=== PATIENT | female | born 1995 | race Caucasian/White ===

== ENCOUNTER 2021-06-01 14:02 | Emergency (ER) | payer SELFPAY ==
[~2021-06-01] VITALS: Ht 160 cm; Wt 99.8 kg
--- OUTSIDE RECORDS SUMMARY | 2021-06-01 14:09 | XMS REPORT | Clinical Summary ---
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 If you d o not see the information that you expected, contact Release of Information in [facility] [employer] Information Management department at [phone] for further assistan ce in locating additional records.[facility] Allergies No Known Active Allergies Medications End Date Status Medication Sig Dispensed Refills Start Date Active sertraline (ZOLOFT) 100 Take 100 mg 0 mg tablet by mouth daily. Active ferrous sulfate (FEOSOL, Take 1 Tab by 90 Tab 3 FEROSUL) 325 mg (65 mg mouth daily. 7 iron) tabletIndications: Take on an Anemia due to chronic empty stomach blood loss at least 1 hour before or 2 hours after food. Active Problems No known active problems Surgical History Surgery Date Site/Laterality Comments HX APPENDECTOMY HX CHOLECYSTECTOMY TONSIL AND ADENOIDECTOMY WISDOM TEETH EXTRACTION Medical History Medical History Date Comments Asthma Migraines Family History Medical History Relation Name Comments Diabetes Father Heart Disease Maternal Grandfather Heart Disease Maternal Grandmother Cancer-Breast Mother Cancer-Colon Neg Hx Cancer-Ovarian Neg Hx Cancer-Uterine Neg Hx Cervical Cancer Neg Hx Relation Name Status Comments Father Maternal Grandfather Maternal Grandmother Mother Social History Date Tobacco Use Types Packs/Day Years Used Never Smoker Smokeless Tobacco: Never Used Comments Alcohol Use Standard Drinks/Week No 0 (1 standard drink = 0.6 o z pure alcohol) Sex Assigned at Date Recorded Not on file Obstetrics History Term Pre Abrt (TAB) (SAB) (Ect) Mult Lvng Comments Grav Para 1 1 1 Date GA Total Labor Labor/2nd/3rd Weight Sex Delivery Anes PTL Veronica A1 A5 Name Clin Outcome SAB Last Filed Vital Signs Reading Time Taken Comments Vital Sign 118/74 04/24/2017 11:22 AM CDT Blood Pressure 74 04/24/2017 11:22 AM CDT Pulse - - Temperature - - Respiratory Rate - - Oxygen Saturation - - Inhaled Oxygen Concentration 96.2 kg (212 lb) 04/24/2017 11:22 AM CDT Weight 157.5 cm (5' 2") 04/24/2017 11:22 AM CDT Height 38.78 04/24/2017 11:22 AM CDT Body Mass Index Plan of Treatment Health Maintenance Due Date Last Done Comments CHLAMYDIA SCREENING 18-24 1997 YEARS HPV VACCINES (1 - 2-dose 2008 series) HIV SCREENING 2012 DTAP/TDAP VACCINES ( - 2015 Tdap) HEPATITIS C SCREENING 2015 PHYSICAL (COMPREHENSIVE) 2015 EXAM CERVICAL CANCER SCREENING 2018 INFLUENZA VACCINE 06/22/2021 Results Not on filefrom Last 3 Months Insurance Type Payer Benefit Subscriber ID Effective Phone Address Plan / Dates [facility] [id number]-P [facility] 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
--- OUTSIDE RECORDS SUMMARY | 2021-06-01 14:09 | XMS REPORT | Clinical Summary ---
Author Author [facility] Organization [facility] Address Unknown Phone Unavailable Care Team Providers Care Ingot Header Name Role Phone PCP Unavailable Allergies No Known Active Allergies Medications End Date Status Medication Sig Dispensed Refills Start Date Active sertraline (ZOLOFT) 50 MG Take 50 mg by 0 tablet mouth daily. Active predniSONE (DELTASONE) 10 Take 10 mg by 0 MG tablet mouth daily. Active Problems Problem Noted Date Well child visit 01/17/2014 Social History Date Tobacco Use Types Packs/Day Years Used Never Smoker Comments Alcohol Use Standard Drinks/Week No 0 (1 standard drink = 0.6 o z pure alcohol) Sex Assigned at Date Recorded Not on file Last Filed Vital Signs Reading Time Taken Comments Vital Sign 151/67 09/02/2015 1:31 AM DONKEY DOCTOR Blood Pressure 60 09/02/2015 1:31 AM DONKEY DOCTOR Pulse 36.5 C (97.7 F) 09/01/2015 11:41 PM DONKEY DOCTOR Temperature 16 09/01/2015 11:41 PM DONKEY DOCTOR Respiratory Rate 97% 09/02/2015 1:31 AM DONKEY DOCTOR Oxygen Saturation - - Inhaled Oxygen Concentration 86.2 kg (190 lb) 09/01/2015 11:41 PM DONKEY DOCTOR Weight - - Height - - Body Mass Index Plan of Treatment Health Maintenance Due Date Last Done Comments Td/Tdap# 1997 HPV Vaccine (1 - 2-dose 2008 series) COVID-19 Vaccine (1) 2009 Cervical Cancer Screening 2018 via Pap Smear Influenza Vaccine (#1) 2021 Pneumococcal Vaccine: Aged Out No longer eligib le based on patient's age to Pediatrics (0 to 5 Years) complete this topic and At-Risk Patients (6 to 64 Years) Results Not on filefrom Last 3 Months Insurance Type Payer Benefit Subscriber ID Effective Phone Address Plan / Dates Group MEDICAID MANAGED CARE [place] [id number] 0- ([place]) [facility] Present [facility] Personal/F Other 04/20/1940 [address] [place] (Home) [place] [id number] Advance Directives For more information, please contact: [phone] Patient Comedian Explanation Type Date Recorded Advance Directives and Living Will Power of Laborer [employer]
[2021-06-01] MEDS ORDERED: RT-ALBUTEROL/IPRATROPIUM 3 ML (DUONEB) VIAL ONE (15:03)
--- NOTE | 2021-06-01 15:26 | ED Chest Pain ---
General Chief Complaint: Chest Pain Stated Complaint: COUGH,CP,CONGESTION,SOB Source: patient Exam Limitations: no limitations History of Present Illness Date Seen by Provider: Jun 01, 2021 Time Seen by Provider: 15:26 Initial Comments To ER with cough chest pain shortness of breath sneezing for a few days. She thought it was her allergies. History of asthma. She used the last of her rescue inhaler at home. No fevers. Timing/Duration: 2-3 days Severity/Quality: moderate Radiation: no radiation Activities at Onset: none ASA po TITLE ATTORNEY: No NTG SL TITLE ATTORNEY: No Associated Symptoms: shortness of breath Allergies and Home Medications Allergies Coded Allergies: No Known Drug Allergies (Unverified , 06/01/21) Patient Home Medication List Home Medication List Reviewed: Yes Review of Systems Review of Systems Constitutional: see HPI; No chills Respiratory: See HPI, Cough Cardiovascular: No Symptoms Reported Gastrointestinal: No Symptoms Reported Genitourinary: No Symptoms Reported Musculoskeletal: no symptoms reported Skin: no symptoms reported Psychiatric/Neurological: No Symptoms Reported Endocrine: No Symptoms Reported Past Zlhsuqq-Ztkdxm-Bhujrf Hx Patient Social History Tobacco Use?: No Smoking Status: Never a Smoker Use of E-Cig and/or Vaping dev: No Substance use?: No Alcohol Use?: No Pt feels they are or have been: No Immunizations Up To Date First/Initial COVID19 Vaccinat: OCT 2020 Second COVID19 Vaccination [place]: OCT 2020 COVID19 Vaccine Food Critic: Rachio Physical Exam Vital Signs Vital Signs - First Documented 06/01/21 14:19 Temp 36.4 Pulse 111 Resp 20 B/P (MAP) 159/109 (126) Pulse Ox 96 O2 Delivery Room Air Capillary Refill : Less Than 3 Seconds Height, Weight, BMI Height: '" Weight: lbs. oz. kg; BMI Method: General Appearance: No Apparent Distress, WD/WN, Other (Alert and oriented no d istress very pleasant EKG shows sinus rhythm no ST segment changes no ectopy normal intervals. She is with a heart rate of 100, oxygen saturation 98% room air. Lungs are clear with good air movement after the DuoNeb.) Neck: Full Range of Motion, Normal Inspection Respiratory: Normal Breath Sounds, No Accessory Muscle Use, No Respiratory Distress Cardiovascular: Regular Rate, Rhythm, Normal Peripheral Pulses Gastrointestinal: Normal Bowel Sounds, Non Tender, Soft Extremity: Normal Capillary Refill, Normal Inspection Neurologic/Psychiatric: Alert, Oriented x3 Skin: Normal Color, Warm/Dry Progress/Results/Core Measures Results/Orders Lab Results Laboratory Tests Test 06/01/21 14:32 06/01/21 14:35 Range/Units White Blood Count 11.5 H 4.3-11.0 10^3/uL Red Blood Count 5.21 H 3.80-5.11 10^6/uL Hemoglobin 14.7 11.5-16.0 g/dL Hematocrit 45 35-52 % Mean Corpuscular Volume 86 80-99 fL Mean Corpuscular Hemoglobin 28 25-34 pg Mean Corpuscular Hemoglobin Concent 33 32-36 g/dL Red Cell Distribution Width 13.0 10.0-14.5 % Platelet Count 360 130-400 10^3/uL Mean Platelet Volume 9.3 9.0-12.2 fL Immature Granulocyte % (Auto) 0 % Neutrophils (%) (Auto) 64 42-75 % Lymphocytes (%) (Auto) 23 12-44 % Monocytes (%) (Auto) 9 0-12 % Eosinophils (%) (Auto) 4 0-10 % Basophils (%) (Auto) 1 0-10 % Neutrophils # (Auto) 7.3 1.8-7.8 10^3/uL Lymphocytes # (Auto) 2.6 1.0-4.0 10^3/uL Monocytes # (Auto) 1.0 0.0-1.0 10^3/uL Eosinophils # (Auto) 0.4 H 0.0-0.3 10^3/uL Basophils # (Auto) 0.1 0.0-0.1 10^3/uL Immature Granulocyte # (Auto) 0.0 0.0-0.1 10^3/uL Serum Test, Qualitative NEGATIVE NEGATIVE SARS-CoV-2 RNA (RT-PCR) Not Detected Not Detecte My Orders Orders - GILA KASPER FLAT CUTTER Covid 19 Inhouse Test (06/01/21 14:20) Albuterol/Ipra Inhalation Soln (Duoneb I (06/01/21 15:03) Cbc With Automated Diff (06/01/21 15:22) Hcg,Qualitative Serum (06/01/21 15:22) Ed Iv/Invasive Line Start (9/10/21 15:22) Albuterol/Ipra Inhalation Soln (Duoneb I (06/01/21 15:30) Ekg Tracing (06/01/21 15:23) Chest 1 View, Ap/Pa Only (06/01/21 15:42) Vital Signs/I&O 06/01/21 06/01/21 14:19 15:04 Temp 36.4 Pulse 111 Resp 20 B/P (MAP) 159/109 (126) Pulse Ox 96 96 O2 Delivery Room Air Room Air Departure Impression Primary Impression: Reactive airway disease Disposition: HOME, SELF-CARE Condition: Stable Departure-Patient Inst. Decision time for Depature: 16:10 Referrals: NO,LOCAL PHYSICIAN (PCP/Family) Primary Care Physician Patient Instructions: NO INSTRUCTIONS GIVEN Scripts Albuterol Sulfate (PROAIR HFA) 1 Puff Puff 2 PUFF IH Q4H PRN for SHORTNESS OF BREATH, #1 EA 1 PUFF = 90 MCG Prov: GILA KASPER FLAT CUTTER 06/01/21 Prednisone (Prednisone) 20 Mg Tab 40 MG PO DAILY, #8 TAB 0 Refills Prov: GILA KASPER FLAT CUTTER 06/01/21 GILA KASPER APRN Jun 01, 2021 15:26
[2021-06-01] MEDS ORDERED: RT-ALBUTEROL/IPRATROPIUM 3 ML (DUONEB) VIAL INH ONE (15:30)
[2021-06-01 15:35] LABS: BASOPHILS # (AUTO) 0.1 10^3/uL (0.0-0.1); BASOPHILS % (AUTO) 1 % (0-10); EOSINOPHILS # (AUTO) 0.4 10^3/uL (0.0-0.3); EOSINOPHILS % (AUTO) 4 % (0-10); HEMATOCRIT 45 % (35-52); HEMOGLOBIN 14.7 g/dL (11.5-16.0); LYMPHOCYTES # (AUTO) 2.6 10^3/uL (1.0-4.0); LYMPHOCYTES % (AUTO) 23 % (12-44); MEAN CORPUSCULAR HEMOGLOBIN 28 pg (25-34); MEAN CORPUSCULAR HGB CONC 33 g/dL (32-36); MEAN CORPUSCULAR VOLUME 86 fL (80-99); MEAN PLATELET VOLUME 9.3 fL (9.0-12.2); MONOCYTES % (AUTO) 9 % (0-12); NEUTROPHILS # (AUTO) 7.3 10^3/uL (1.8-7.8); NEUTROPHILS % (AUTO) 64 % (42-75); PLATELET COUNT 360 10^3/uL (130-400); WHITE BLOOD COUNT 11.5 10^3/uL (4.3-11.0)
--- NOTE | 2021-06-01 16:03 | Diagnostic Imaging Report ---
INDICATION: Cough COMPARISON: None available. TECHNIQUE: Single radiograph of the chest dated 06/01/2021 FINDINGS: The cardiac silhouette and pulmonary vasculature are within normal limits. The lungs are clear without focal pulmonary opacity. No pleural effusion. No pneumothorax. No acute osseous abnormality. IMPRESSION: No acute cardiopulmonary abnormality. Dictated by: Dictated on workstation # [id number]
[2021-06-01] MEDS ORDERED: RT-ALBUINH IH (16:11)
[2021-06-01] MEDS ORDERED: PRD20T PO (16:11)
[2021-06-01 16:18] VITALS: BP 133/79
== END 2021-06-01 16:18 | disposition home or self-care (01) ==
LOC: ER 14:06
DX: J45.909 Unspecified asthma, uncomplicated (principal); Z20.822 Contact with and (suspected) exposure to COVID-19
CPT/HCPCS: 36415; 71045; 84703; 85025; 87636; 93005; 94640